=== PATIENT | female | born 1965 | race Two or more races ===

== ENCOUNTER 2021-11-14 11:50 | Emergency (ER) | payer OTHER ==
[~2021-11-14] VITALS: Ht 162.6 cm; Wt 77.1 kg
[2021-11-14] MEDS ORDERED: ECOTRIN325 M1 PO (11:56)
== END 2021-11-14 14:54 | disposition home or self-care (01) ==
LOC: EMR PED 11:50 → ER 11:50
DX: R42 Dizziness and giddiness (principal); Z88.6 Allergy status to analgesic agent